=== PATIENT | male | born 1970 | race Caucasian/White ===

== ENCOUNTER 2024-10-15 14:19 | Emergency (ER) | payer MEDICAID, SELFPAY ==
[2024-10-15 14:30] VITALS: BMI 27.1
[2024-10-15 14:46] VITALS: BP 112/87; PULSE 88; RESP 18; TEMP 36.6; O2SAT 99
--- NOTE | 2024-10-15 15:28 | XR_ITS ---
Examination: Lumbar spine 3 views Technique one AP lateral coned lateral lower lumbar spine 3 views Exam date and time: October 15, 2024 1551 hours INDICATIONS: Injury to lower back today, lower back pain. FINDINGS: Adequate alignment lumbar vertebral bodies Diffuse moderate lumbar degenerative disc disease, most severe at L4-L5, L5-S1 No lumbar fracture No spondylolisthesis IMPRESSION: Diffuse moderate lumbar degenerative disc disease, most severe at L4-L5, L5-S1
[2024-10-15] MEDS: IBUPROFEN TAB 400 MG TABLET 800 MG PO (15:33)
--- NOTE | 2024-10-15 15:33 | PD.EDBACK ---
ED Back Injury Pain RME/HPI General Chief Complaint: Back Pain/Injury Stated Complaint: BACK PAIN Time Seen by Provider: 10/15/24 14:56 Source: patient Arrival date/time: 10/15/24 14:19 This is a 54-year-old male who presented to the emergency department via EMS for complaints of lower back pain. According to the patient he has had a history of back pain in the past. States that today he was kneeling on the floor pulling nails from a floor with a hammer when he felt a pinch on his lower back. Subsequently he was unable to move and will experience shooting pain down his right leg. Associated with spasms. Mode of arrival: EMS Related Data Previous Rx's ?Medication ?Instructions ?Recorded albuterol sulfate 90 mcg/actuation 2 puff inhalation QID PRN 08/25/20 aerosol inhaler shortness of breath or wheezing #18 grams azithromycin 250 mg tablet See Rx Instructions PO .COMPLEX #6 08/25/20 tabs albuterol sulfate 90 mcg/actuation 2 puff inhalation Q6H PRN 12/31/23 aerosol inhaler (Ventolin HFA) shortness of breath or wheezing #8.5 grams omeprazole 20 mg tablet,delayed 20 mg PO BID #60 tabs 12/31/23 release cyclobenzaprine 10 mg tablet 10 mg PO TID PRN muscle spasm #14 10/15/24 tabs gabapentin 300 mg capsule 300 mg PO Q8H #30 caps 10/15/24 gabapentin 300 mg capsule 300 mg PO TID pain #14 caps 10/15/24 hydrocodone 7.5 mg-acetaminophen 1 tab PO Q6H PRN pain #14 tabs 10/15/24 325 mg tablet hydrocodone 7.5 mg-acetaminophen 1 tab PO Q6H PRN pain #14 tabs 10/15/24 325 mg tablet hydrocodone 7.5 mg-acetaminophen 1 tab PO Q6H PRN pain #14 tabs 10/15/24 325 mg tablet prednisone 50 mg tablet 50 mg PO QDAY 5 days #5 tabs 10/15/24 Allergies Allergy/AdvReac Type Severity Reaction Status Date / Time No Known Allergies Allergy Verified 03/23/18 23:04 Review of Systems Review of Systems Systems Reviewed: All systems reviewed, normal except as documented Narrative Review of Systems: Gen: No fever, no chills, no weight loss EYES: No discharge, no visual changes, no pain HEENT: No ear pain, no congestion, no sore throat PULM: No shortness of breath, no cough, no congestion CV: No chest pain, no dyspnea on exertion, no palpitations GI: No nausea, no vomiting, no diarrhea, no pain, no constipation : No frequency, no urgency,? no dysuria Musc/skel: No joint pain, ++ back pain Skin: No rash? ED Exam Narrative Physical exam: General: Sittiing in Exam table in no acute distress, answering questions appropriately HENT: normocephalic, atraumatic, EOMI, PERRLA, moist mucous membranes Chest: chest wall is nontender Cardiac: regular rate and rhythm, normal S1 and S2, no murmurs, rubs, or gallops, capillary refill ?2 seconds Pulmonary: clear to auscultation bilaterally, no wheezing, crackles, or rhonchi Abdominal: active bowel sounds, soft, nontender, nondistended Neuro: A&OX3, CN II-XII intact, sensation grossly intact bilaterally in UE and LE. Nikolas: + Paraspinal tenderness no vertebral tenderness. Skin: no rashes, no ecchymosis Ext: no lower extremity edema Course Quality Measures none Orders Category Date Time Status XR lumbar spine 2-3V Stat Exams 10/15/24 15:28 Completed CYCLObenzaPRINE [Flexeril] Med 10/15/24 15:29 Discontinued 10 mg PO X1 ONE HYDROcodone*/APAP 5/325 [[place] 5/325] Med 10/15/24 18:29 Discontinued 1 tab PO X1 ONE HYDROcodone*/APAP 7.5/325 [[place] 7.5/325] Med 10/15/24 15:29 Discontinued 1 tab PO X1 ONE Ibuprofen Tab [Motrin Tab] Med 10/15/24 15:28 Discontinued 800 mg PO X1 ONE MethylPREDNISolone.* [SoluMEDROL Inj] Med 10/15/24 18:29 Discontinued 125 mg IM X1 ONE Vital Signs Vital signs: Vital Signs Temperature 98 F 10/15/24 14:46 Pulse Rate 88 10/15/24 14:46 Respiratory Rate 18 10/15/24 14:46 Blood Pressure 112/87 H 10/15/24 14:46 Pulse Oximetry (%) 99 10/15/24 14:46 Oxygen Delivery Method Room Air 10/15/24 14:46 Back Pain / Injury MDM Narrative MDM Narrative:: This is a 54-year-old male who presents to the emergency department what appears as a lumbar back strain. Patient appears to be in distress cocktail medication was ordered . And lumbar x-ray. Lumbar x-ray did demonstrate advanced degenerative disc disease. No fever, weakness, abdominal pain, saddle anesthesia, bowel/bladder incontinence noted. No hx of IVDA. Gait and sensation intact. No signs of emergent pathology at this time. Low suspicion for emergent etiology such as epidural abscess or spinal cord compression/cauda equina. Upon reassessment patient was requesting another dose of pain medication before discharge because pharmacy will be closed. I did go ahead and order another dose medication sent Rx and supportive medications to pharmacy. Strictly advised patient that he will need to follow-up with his PCP most likely physical therapy or MRI. Strictly advised to return to the emergency department if there is any worsening symptoms or change in condition as discussed Patient data External records reviewed:: [facility] previous records Clinical information provided by:: patient Social determinants that could affect healthcare access:: none Patient has the following chronic illnesses:: none How is presenting disease/condition affected by chronic disease/condition?: no chronic disease Evaluation data The following diagnostics were reviewed and interpreted by me:: radiology exam(s) Lab and/or radiology exams considered but not ordered:: none Interpretation Summary: Examination: Lumbar spine 3 views Technique one AP lateral coned lateral lower lumbar spine 3 views Exam date and time: October 15, 2024 1551 hours INDICATIONS: Injury to lower back today, lower back pain. FINDINGS: Adequate alignment lumbar vertebral bodies Diffuse moderate lumbar degenerative disc disease, most severe at L4-L5, L5-S1 No lumbar fracture No spondylolisthesis IMPRESSION: Diffuse moderate lumbar degenerative disc disease, most severe at L4-L5, L5-S1 Medications / Prescriptions Medications or Prescriptions considered but not ordered:: none Medication administrations:: Medication Administration History Discontinued Medications Hydrocodone Bitart/Acetaminophen (Hydrocodone/[place] 7.5/325 Tablet) 1 tab PO X1 ONE Stop: 10/15/24 15:30 Last Admin: 10/15/24 15:34 Dose: 1 tab Documented By: Hydrocodone Bitart/Acetaminophen (Hydrocodone/Apap 5/325 Tablet) 1 tab PO X1 ONE Stop: 10/15/24 18:30 Last Admin: 10/15/24 19:02 Dose: 1 tab Documented By: Cyclobenzaprine HCl (Cyclobenzaprine 5 Mg Tablet) 10 mg PO X1 ONE Stop: 10/15/24 15:30 Last Admin: 10/15/24 15:34 Dose: 10 mg Documented By: Ibuprofen (Ibuprofen Tab 400 Mg Tablet) 800 mg PO X1 ONE Stop: 10/15/24 15:29 Last Admin: 10/15/24 15:33 Dose: 800 mg Documented By: Methylprednisolone Sodium Succinate (Methylprednisolone Sod Succ 62.5 Mg/Ml 2ml Vial) 125 mg IM X1 ONE Stop: 10/15/24 18:30 Last Admin: 10/15/24 19:02 Dose: 125 mg Documented By: All medications administered and effective Consultations Consultation(s) initiated? (list below): No Diagnosis Differential diagnosis back pain/injury: lumbar radiculopathy Most likely diagnosis given after review of the tests above:: Degenerative disk disease Admission Indicated Admission indicated?: not indicated Admission Request Was there a request for admission?: No Disposition Plan Disposition Plan: Discharge Discharge Attestation Discharge Attestation: The patient and all family members were given an opportunity to ask questions and understood the discharge instructions. Discharge instructions specifically effects, indications for sooner follow up or return to the emergency department, and the expected course of current diagnosis. Patient condition: Stable Discharge Plan Plan Patient Disposition: HOME (Self Care) Prescriptions/Referrals Prescriptions/Med Rec: New gabapentin 300 mg capsule 300 mg PO Q8H Qty: 30 0RF hydrocodone-acetaminophen 7.5-325 mg tablet 1 tab PO Q6H MDD 3 PRN (Reason: pain) Qty: 14 0RF prednisone 50 mg tablet 50 mg PO QDAY 5 Days Qty: 5 0RF cyclobenzaprine 10 mg tablet 10 mg PO TID MDD 3 PRN (Reason: muscle spasm) Qty: 14 0RF gabapentin 300 mg capsule 300 mg PO TID Qty: 14 0RF hydrocodone-acetaminophen 7.5-325 mg tablet 1 tab PO Q6H MDD 4 PRN (Reason: pain) Qty: 14 0RF hydrocodone-acetaminophen 7.5-325 mg tablet 1 tab PO Q6H MDD 4 PRN (Reason: pain) Qty: 14 0RF No Action azithromycin 250 mg tablet See Rx Instructions .ROUTE .COMPLEX Qty: 6 0RF Rx Instructions: take 500 mg today (day 1), then 250 mg for 4 days (days 2-5) albuterol sulfate 90 mcg/actuation HFA aerosol inhaler 2 puff inhalation QID PRN (Reason: shortness of breath or wheezing) Qty: 18 0RF albuterol sulfate [Ventolin HFA] 90 mcg/actuation HFA aerosol inhaler 2 puff inhalation Q6H PRN (Reason: shortness of breath or wheezing) Qty: 8.5 3RF omeprazole 20 mg tablet,delayed release (DR/EC) 20 mg PO BID Qty: 60 0RF Referrals: Antony Minor PA-C [Primary Care Provider] - In 1 week Problem List Clinical Impression: Degenerative disk disease, Lumbar radiculopathy Patient/Caregiver Discharge Instructions Discharge Activity: activity as tolerated Education Materials: ED Back Pain (Acute or Chronic), ED Sciatica Additional Instructions: -You will need to rest and have activities modification avoid heavy lifting twisting motions or prolonged sitting or standing. -Will need to follow-up with your doctor in 2 to 3 days for follow-up care Might need physical therapy Might need referral for MRI outpatient, Diagnostic imaging (like MRI) might be used to assess the extent of the bulging disc, particularly if symptoms worsen or persist. -Medications sent please use as directed Can include ibuprofen, muscle relaxant,gabapentin, norco Lifestyle modifications weight reduction Return to the emergency department this any worsening symptoms change in condition. Print Language: Vietnamese Stand Alone Forms: [employer] Award Info., Patient Portal Info Letter PA/KEZIA Supervising Physician PA/KEZIA Supervising Physician: Dr Gilmore
[2024-10-15] MEDS: CYCLObenzaPRINE 5 MG TABLET 10 MG PO (15:34)
[2024-10-15] MEDS: HYDROcodone/APAP 7.5/325 TABLET 1 TAB PO (15:34)
[2024-10-15] MEDS: HYDROcodone/APAP 5/325 TABLET 1 TAB PO (19:02)
[2024-10-15] MEDS: MethylPREDNISolone SOD SUCC 62.5 MG/ML 2ML VIAL 125 MG IM (19:02)
== END 2024-10-15 19:11 | disposition home or self-care (01) ==
PROVIDERS: Emergency Provider Emergency Medicine; PCP Physician Assistant
DX: M51.16 Intervertebral disc disorders with radiculopathy, lumbar region (principal); M51.379 Other intervertebral disc degeneration, lumbosacral region without mention of lumbar back pain or lower extremity pain
CPT/HCPCS: 72100; 96372; 99283; J2919; A9270